=== PATIENT | female | born 1960 | race Caucasian/White ===

== ENCOUNTER 2019-10-05 12:46 | Emergency (ER) | payer OTHER, MEDICAID, SELFPAY ==
[2019-10-05 13:09] VITALS: BP 169/77; PULSE 82; RESP 15; TEMP 37.2; O2SAT 96; BMI 20.1
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
--- NOTE | 2019-10-05 13:37 | PC.NURSE ---
pt removed her own C-Collar.
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
[2019-10-05 15:16] VITALS: BP 135/65; PULSE 86; O2SAT 98
== END 2019-10-05 15:18 | disposition home or self-care (01) ==
PROVIDERS: Emergency Provider Nurse Practitioner; Family Provider Family Medicine; PCP Family Medicine
DX: R51 Headache (principal)
CPT/HCPCS: 70450; 72125; 99283; 99284

== ENCOUNTER → 2020-05-21 14:02 | Outpatient (CLI) | payer OTHER, MEDICAID, SELFPAY ==
[2020-05-21 15:40] LABS: Add Manual Diff / Slide Review NO; Basophils Absolute Auto 100 /uL (0-100); Basophils Percent Auto 1.4 % (0-2); Eosinophils Absolute Auto 0 /uL (0-450); Eosinophils Percent Auto 0.4 % (2-4); Hematocrit 40.2 % (36-46); Hemoglobin 13.7 g/dL (12.0-16.0); Lymphocytes Absolute Auto 1500 /uL (1100-4500); Lymphocytes Percent Auto 28.5 % (25-40); Mean Corpuscular Hemoglobin 34.1 PG (26-34); Mean Corpuscular Volume 100.3 fL (80-100); Monocytes Absolute Auto 600 /uL (0-900); Monocytes Percent Auto 12.2 % (3-14); Neutrophils Absolute Auto 3000 /uL (1500-7000); Neutrophils Percent Auto 57.5 % (50-75); Platelet Count 197 X10^3/uL (150-400); Red Blood Cell Count 4.01 X10^6/uL (4.0-5.2); Red Cell Distribution Width 13.9 % (11.6-14.8); White Blood Cell Count 5.3 X10^3/uL (4.5-11.0)
[2020-05-21 15:45] LABS: Prothrombin Time 10.9 SECONDS (10.1-12.7)
[2020-05-21 15:50] LABS: Alanine Aminotransferase 49 IU/L (<35); Albumin 5.3 g/dL (3.5-5.0); Albumin Globulin Ratio 1.4 (1.0-2.8); Alkaline Phosphatase 115 U/L (38-126); Aspartate Aminotransferase 76 IU/L (14-36); BUN Creatinine Ratio 17.5 (6-22); Bilirubin Total 0.4 mg/dL (0.2-1.3); Blood Urea Nitrogen 7 mg/dL (7-17); Carbon Dioxide 29 mmol/L (22-32); Chloride 101 mmol/L (98-107); Estimated Glomerular Filt Rate > 60.0 mL/min (>60); Globulin 3.7 g/dL (1.7-4.1); Glucose 87 mg/dL (70-100); HEMOLYSIS < 15 (0-50); Magnesium 2.1 mg/dL (1.6-2.3); Potassium 3.8 mmol/L (3.4-5.1); Sodium 139 mmol/L (137-145)
[2020-05-21 16:44] LABS: TSH w/ Reflex to FT4 1.87 uIU/mL (0.47-4.68)
[2020-05-23 00:54] LABS: Vitamin B1 104.1 nmol/L (66.5-200.0)
== END ==
PROVIDERS: Family Provider Family Medicine; PCP Nurse Practitioner Family; Referring Provider Nurse Practitioner Family; Visit Provider Nurse Practitioner Family
DX: F10.10 Alcohol abuse, uncomplicated (principal)
CPT/HCPCS: 36415; 80053; 83735; 84425; 84443; 85025; 85610

== ENCOUNTER → 2020-06-05 08:10 | Outpatient (CLI) | payer OTHER, MEDICAID, SELFPAY ==
[2020-06-06 17:15] LABS: Fecal Immunochemical Test Negative (Negative)
== END ==
PROVIDERS: Family Provider Family Medicine; PCP Nurse Practitioner Family; Referring Provider Nurse Practitioner Family; Visit Provider Nurse Practitioner Family
DX: F10.10 Alcohol abuse, uncomplicated (principal)
CPT/HCPCS: 82274

== ENCOUNTER → 2020-06-08 09:51 | Outpatient (CLI) | payer OTHER, MEDICAID, SELFPAY ==
--- NOTE | 2020-06-08 09:52 | DI.MG.S_ITS ---
BILATERAL DIGITAL SCREENING MAMMOGRAM 3D/2D WITH CAD: 06/08/2020 CLINICAL: Routine screening. Family history of breast cancer. Comparison is made to exams dated: 12/06/2014 mammogram, 01/03/2009 mammogram, 02/18/2007 mammogram, and 11/03/2004 mammogram - [facility]. The tissue of both breasts is heterogeneously dense. This may lower the sensitivity of mammography. Current study was also evaluated with a Computer Aided Detection (CAD) system. No significant masses, calcifications, or other findings are seen in either breast. There has been no significant interval change. IMPRESSION: NEGATIVE There is no mammographic evidence of malignancy. A 1 year screening mammogram is recommended. This exam was interpreted at Station ID: [id number]. NOTE: For mammograms, a report in lay terms will be sent to the patient. Approximately 15% of breast malignancies will not be visualized mammographically. In the management of a palpable breast mass, a negative mammogram must not discourage biopsy of a clinically suspicious lesion. Electronically Signed By: Keaton gusman/reggie:06/10/2020 08:43:21 letter sent: Normal Exam ACR BI-RADS Category 1: Negative [id number]
== END ==
PROVIDERS: Family Provider Family Medicine; PCP Nurse Practitioner Family; Referring Provider Nurse Practitioner Family; Visit Provider Nurse Practitioner Family
DX: Z12.31 Encounter for screening mammogram for malignant neoplasm of breast (principal); Z80.3 Family history of malignant neoplasm of breast
CPT/HCPCS: 77063; 77067

== ENCOUNTER → 2020-06-24 13:44 | Outpatient (CLI) | payer OTHER, MEDICAID, SELFPAY ==
[2020-06-24 14:37] LABS: Alanine Aminotransferase 15 IU/L (<35); Albumin 4.5 g/dL (3.5-5.0); Albumin Globulin Ratio 1.4 (1.0-2.8); Alkaline Phosphatase 88 U/L (38-126); Aspartate Aminotransferase 23 IU/L (14-36); BUN Creatinine Ratio 17.6 (6-22); Bilirubin Total 0.3 mg/dL (0.2-1.3); Blood Urea Nitrogen 9 mg/dL (7-17); Calcium 9.4 mg/dL (8.4-10.2); Carbon Dioxide 32 mmol/L (22-32); Chloride 104 mmol/L (98-107); Estimated Glomerular Filt Rate > 60.0 mL/min (>60); Globulin 3.3 g/dL (1.7-4.1); Glucose 101 mg/dL (70-100); HEMOLYSIS < 15 (0-50); Potassium 4.3 mmol/L (3.4-5.1); Sodium 141 mmol/L (137-145); Total Protein 7.8 g/dL (6.3-8.2)
== END ==
PROVIDERS: Family Provider Family Medicine; PCP Nurse Practitioner Family; Referring Provider Nurse Practitioner Family; Visit Provider Nurse Practitioner Family
DX: F10.11 Alcohol abuse, in remission (principal); R74.8 Abnormal levels of other serum enzymes
CPT/HCPCS: 36415; 80053

== ENCOUNTER 2023-09-15 09:07 | Emergency (ER) | payer OTHER, MEDICAID, SELFPAY ==
[2023-09-15 09:32] VITALS: BP 121/69; PULSE 82; RESP 18; TEMP 36.6; O2SAT 96; BMI 18.8
[2023-09-15 10:10] LABS: Bacteria Urine None Seen; Culture Indicated Urine Cult Not Indicated; RBC Urine None Seen (0-5/HPF); Squamous Epithelial Cell Urine None Seen (0-5/HPF); WBC Urine None Seen (0-5/HPF)
[2023-09-15] MEDS: SODIUM CHLORIDE 0.9% 1,000 ML 1000 ML IV (10:12)
--- NOTE | 2023-09-15 10:38 | ED.GENADULT ---
HPI - General Adult General Chief complaint: Toxicology Problem Stated complaint: sent from DR drea burciaga Time Seen by Provider: 09/15/23 09:39 Source: patient Mode of arrival: Wheelchair History of Present Illness HPI narrative: Patient is a 62-year-old female. She went her primary doctor's office today as an initial visit. She does have a significant alcohol use history. Has withdrawn from alcohol in the past. Her last drink was last evening. She has never had a seizure secondary to alcohol withdrawal. She has had diarrhea for the past 2 months. No recent travel. No recent antibiotics. This is why she went to the primary doctor's office today. During that visit she had what appeared to be a syncopal episode. States she was trying to make it to the bathroom in order to have a bowel movement when the event happened. She was sent here to the emergency department for concern of alcohol withdrawal. Related Data Home Medications Medication Instructions Recorded Confirmed No Known Home Medications 09/15/23 09/15/23 Allergies Allergy/AdvReac Type Severity Reaction Status Date / Time cephalexin Allergy Mild HIVES Verified 09/15/23 08:20 cholecalciferol (vitamin D3) Allergy Mild Vertigo Verified 09/15/23 08:20 [From Vitamin D3] Penicillins Allergy Mild HIVES Verified 09/15/23 08:20 Sulfa (Sulfonamide Allergy Mild HIVES Verified 09/15/23 08:20 Antibiotics) tetracycline Allergy Mild HIVES Verified 09/15/23 08:20 Review of Systems Review of Systems ROS Unobtainable: All systems reviewed & are unremarkable except as noted in HPI and below Patient History Medical History Macrocytosis without anemia Elevated liver enzymes Alcohol abuse, in remission (05/22/20) Vision disorder Hearing decreased Change in bowel movement ETOH abuse Family History (Updated 06/04/20 @ 20:15 by Chanell Jensen) Mother Breast cancer Social History Smoking Status: Current every day smoker Tobacco: How many years used: 40 quit status: not considering quitting second hand exposure: No alcohol intake: current substance use type: marijuana Smoking Status: Current every day smoker alcohol intake frequency: 3 or more drinks per day Alcohol type: beer Substance Use Type: marijuana Exam Initial Vital Signs Initial Vital Signs: Vital Signs Temperature 98 F 09/15/23 09:32 Pulse Rate 82 09/15/23 09:32 Respiratory Rate 18 09/15/23 09:32 Blood Pressure 121/69 09/15/23 09:32 Pulse Oximetry 96 09/15/23 09:32 Oxygen Delivery Method Room Air 09/15/23 09:32 HENKS Head: normal to inspection and normocephalic Resp Effort & Inspection: normal respiratory effort Auscultation: clear to auscultation bilaterally Cardio Rate: regular rate Rhythm: regular rhythm GI Inspection: normal to inspection and non-distended Neuro Other: Alert and oriented. Is shaking. Extrem General: normal to inspection and capillary refill normal Course Orders Ordered: ED Orders 09/15/23 09:54 EKG-12 Lead Stat 09/15/23 09:57 Urine Microscopic Stat 09/15/23 10:10 BMP [Basic Metabolic Panel] Stat CBC Auto Diff [Complete Blood Count AUTO DIFF] Stat Discontinued Medications Sodium Chloride (Normal Saline 0.9%) 1,000 mls @ 1,000 mls/hr IV BOLUS ONE Stop: 09/15/23 10:53 Last Infusion: 09/15/23 11:23 Dose: Infused Documented By: Admin: 09/15/23 10:12 Dose: 1,000 mls/hr Documented By: MPO Vital Signs Vital signs: Vital Signs - 8 hr 09/15/23 12:11 Pulse Rate 86 Respiratory Rate 18 Blood Pressure 182/86 H Pulse Oximetry 96 Oxygen Delivery Method Room Air Medical Decision Making Lab Data Lab results reviewed: Yes I reviewed the patient's lab results. 09/15/23 10:10 09/15/23 10:10 Labs: Lab Results 09/15/23 09/15/23 Range/Units 09:57 10:10 WBC 4.9 (4.5-11.0) X10^3/uL RBC 4.32 (4.0-5.2) X10^6/uL Hgb 14.2 (12.0-16.0) g/dL Hct 42.4 (36-46) % MCV 98.1 (80-100) fL MCH 32.9 (26-34) PG MCHC 33.5 (30-36) % RDW 14.3 (11.6-14.8) % Plt Count 177 (150-400) X10^3/uL Neut % (Auto) 70.1 (50-75) % Lymph % (Auto) 15.5 L (25-40) % [place] % (Auto) 13.6 (3-14) % Eos % (Auto) 0.0 L (2-4) % Baso % (Auto) 0.8 (0-2) % Neut # (Auto) 3500 (7082-7551) /uL Lymph # (Auto) 800 L (1932-5231) /uL [place] # (Auto) 700 (0-900) /uL Eos # (Auto) 0 (0-450) /uL Baso # (Auto) 0 (0-100) /uL Sodium 137 (137-145) mmol/L Potassium 4.1 (3.4-5.1) mmol/L Chloride 100 (98-107) mmol/L Carbon Dioxide 25 (22-32) mmol/L BUN 10 (7-17) mg/dL Creatinine 0.48 L (0.52-1.04) mg/dL Estimated GFR > 60 (>60) mL/min BUN/Creatinine Ratio 20.8 (6-22) Glucose 122 H (80-110) mg/dL Calcium 9.5 (8.4-10.2) mg/dL Urine RBC None seen (0-5/HPF) Urine WBC None seen (0-5/HPF) Ur Squamous Epith Cells None seen (0-5/HPF) Urine Bacteria None seen (None) Ur Culture Indicated? Cult not indicated Urine Dip Bedside Urine Glucose Negative Bedside Urine Bilirubin - Negative Bedside Urine Ketone - Negative Urine Specific [place] 1.015 Bedside Urine Occult Blood - Negative Bedside Urine pH 7.0 Bedside Urine Protein ++ 100 Bedside Urine Urobilinogen - Negative Bedside Urine Nitrite - Negative Bedside Urine Leukocytes - Negative Esterase Point of care testing: Urine Dip Bedside Urine Glucose Negative Bedside Urine Bilirubin - Negative Bedside Urine Ketone - Negative Urine Specific [place] 1.015 Bedside Urine Occult Blood - Negative Bedside Urine pH 7.0 Bedside Urine Protein ++ 100 Bedside Urine Urobilinogen - Negative Bedside Urine Nitrite - Negative Bedside Urine Leukocytes - Negative Esterase ECG Data Attestation: I personally reviewed and interpreted this ECG as follows: Interpretation: Sinus rhythm Ventricular rate of 78 LVH Normal axis Normal QRS No ST T wave changes MDM Narrative Medical decision making narrative: I do suspect that the patient is having a degree of alcohol withdrawal although she denied multiple offers for help with this to include detox. He was just like to be discharged home. She was given fluids and feels somewhat better afterwards. No recent travel. No recent antibiotics. Unable to provide a stool sample here in the ER. Will discharge patient home with instructions to try antidiarrheal medications such as Imodium. She was advised that she can return to the emergency department at any point if she felt like she needed help with her alcohol use. She expressed understanding and agreement. Discharge Plan Departure Patient Disposition: Home Clinical Impression: Diarrhea, Alcohol abuse Instructions: DI for Alcohol Use Disorder Activity Restrictions/Additional Instructions: Recommend that you consider using loperamide/Imodium to help with your diarrhea. Be sure that you were increasing your fluid intake. Contact your primary doctor for follow-up. I would recommend that you would consider seeking help for your alcohol use. Return to the emergency department for new symptoms. Prescriptions: No Action No Known Home Medications Referrals: Coleen Hillman DO [Primary Care Provider] - Stand Alone Forms: Patient Portal/API
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
--- NOTE | 2023-09-15 11:22 | PC.NURSE ---
I asked patient if she would like to speak with our social media director, and patient responds No, I think we've got it handled.
[2023-09-15 11:28] LABS: Add Manual Diff / Slide Review NO; Basophils Absolute Auto 0 /uL (0-100); Basophils Percent Auto 0.8 % (0-2); Eosinophils Absolute Auto 0 /uL (0-450); Hematocrit 42.4 % (36-46); Hemoglobin 14.2 g/dL (12.0-16.0); Lymphocytes Absolute Auto 800 /uL (1100-4500); Lymphocytes Percent Auto 15.5 % (25-40); Mean Corpuscular HGB Conc 33.5 % (30-36); Mean Corpuscular Hemoglobin 32.9 PG (26-34); Mean Corpuscular Volume 98.1 fL (80-100); Monocytes Absolute Auto 700 /uL (0-900); Monocytes Percent Auto 13.6 % (3-14); Neutrophils Absolute Auto 3500 /uL (1500-7000); Neutrophils Percent Auto 70.1 % (50-75); Platelet Count 177 X10^3/uL (150-400); Red Blood Cell Count 4.32 X10^6/uL (4.0-5.2); Red Cell Distribution Width 14.3 % (11.6-14.8); White Blood Cell Count 4.9 X10^3/uL (4.5-11.0)
[2023-09-15 11:42] LABS: BUN Creatinine Ratio 20.8 (6-22); Blood Urea Nitrogen 10 mg/dL (7-17); Calcium 9.5 mg/dL (8.4-10.2); Carbon Dioxide 25 mmol/L (22-32); Chloride 100 mmol/L (98-107); Estimated Glomerular Filt Rate > 60 mL/min (>60); Glucose 122 mg/dL (80-110); HEMOLYSIS < 15 (0-50); Potassium 4.1 mmol/L (3.4-5.1); Sodium 137 mmol/L (137-145)
[2023-09-15 12:11] VITALS: BP 182/86; PULSE 86; RESP 18; O2SAT 96
== END 2023-09-15 12:12 | disposition home or self-care (01) ==
PROVIDERS: Emergency Provider Emergency Medicine; Family Provider Family Medicine; PCP Family Medicine
DX: F10.10 Alcohol abuse, uncomplicated (principal); R19.7 Diarrhea, unspecified; R07.9 Chest pain, unspecified
CPT/HCPCS: 36415; 80048; 81003; 81015; 85025; 93005; 96360; 99284

== ENCOUNTER → 2023-09-16 10:52 | Outpatient (CLI) | payer OTHER, MEDICAID, SELFPAY ==
[2023-09-16 12:33] LABS: Lipase 419 U/L (23-300)
[2023-09-16 12:45] LABS: TSH w/ Reflex to FT4 2.72 uIU/mL (0.47-4.68)
[2023-09-16 13:24] LABS: Vitamin B12 586 pg/mL (239-931)
[2023-09-16 20:12] LABS: HIV 1 & 2 Ab/Ag 4th Gen Combo NEGATIVE (NEGATIVE)
[2023-09-17 18:22] LABS: Hep C Virus Ab w/Reflex Quant NEGATIVE s/c (NEGATIVE)
== END ==
PROVIDERS: Family Provider Family Medicine; PCP Family Medicine; Referring Provider Family Medicine; Visit Provider Family Medicine
DX: Z11.59 Encounter for screening for other viral diseases (principal); Z11.4 Encounter for screening for human immunodeficiency virus [HIV]; D75.89 Other specified diseases of blood and blood-forming organs; F10.10 Alcohol abuse, uncomplicated; Z63.8 Other specified problems related to primary support group
CPT/HCPCS: 36415; 82607; 83690; 84443; 86803; 87389

== ENCOUNTER → 2023-09-22 08:41 | Outpatient (CLI) | payer OTHER, MEDICAID, SELFPAY ==
--- NOTE | 2023-09-22 08:42 | DI.US.S_ITS ---
PROCEDURE: US ABDOMEN LIMITED INDICATIONS: ETOH ABUSE TECHNIQUE: Real-time scanning was performed of the abdominal and retroperitoneal organs, with image documentation. COMPARISON: None. FINDINGS: Liver: Liver is normal in size and homogeneous in echotexture. No nodular contour. The liver parenchyma is diffusely echogenic. Main portal vein is patent with hepatopedal flow. Gallbladder: No stones or sludge. Normal wall thickness measuring 1 mm. No pericholecystic fluid. Biliary ducts: Intrahepatic bile ducts are non-dilated. Extrahepatic bile duct caliber measures 5.8 mm. Normal is 6-7 mm or less in diameter, or 10 mm or less post-cholecystectomy. Pancreas: Visualized portions of the pancreas are sonographically normal. Spleen: Spleen is normal in size and homogeneous in echotexture. Kidneys: Right kidney is normal in size and echotexture. No hydronephrosis or nephrolithiasis. No solid masses. Miscellaneous: No free abdominal fluid. IMPRESSION: 1. Liver parenchyma is diffusely echogenic which may be seen in the setting of parenchymal disease such as steatosis. No nodular contour or cirrhotic morphology. 2. No sonographic evidence of a hepatic mass. Main portal vein is patent with hepatopedal flow. Dictated by: Thony Sal M.D. on 09/22/2023 at 10:21 Approved by: Thony Sal M.D. on 09/22/2023 at 10:35
== END ==
LOC: US 08:42
PROVIDERS: PCP Family Medicine; Referring Provider Family Medicine; Visit Provider Family Medicine
DX: D75.89 Other specified diseases of blood and blood-forming organs; F10.11 Alcohol abuse, in remission
CPT/HCPCS: 76705

== ENCOUNTER → 2023-10-30 | Outpatient (CLI) | payer SELFPAY ==
--- NOTE | 2023-10-30 | DI.MG.S_ITS ---
BILATERAL DIGITAL SCREENING MAMMOGRAM 3D/2D WITH CAD: 10/30/2023 CLINICAL: Routine screening. Family history of breast cancer. Comparison is made to exams dated: 06/08/2020 mammogram and 12/06/2014 mammogram - [facility]. Both breasts are heterogeneously dense, which may obscure small masses (category c / 51-75% glandular tissue). Current study was also evaluated with a Computer Aided Detection (CAD) system. There is an asymmetry in the right breast anterior depth lateral region seen on the craniocaudal view only. This is more prominent. No other significant masses, calcifications, or other findings are seen in either breast. IMPRESSION: INCOMPLETE: NEEDS ADDITIONAL IMAGING EVALUATION The asymmetry in the right breast is indeterminate. Additional views with possible ultrasound are recommended. Based on the Tyrer Cuzick model (a risk assessment model) the patient's lifetime risk is 13.8% and her 10 year risk is 6.1%. According to the ACR, ACS, and NCCN guidelines, an annual breast MRI exam along with mammogram is recommended if the patient's lifetime risk is 20% or greater. This exam was interpreted at Station ID: [id number]. NOTE: For mammograms, a report in lay terms will be sent to the patient. Approximately 15% of breast malignancies will not be visualized mammographically. In the management of a palpable breast mass, a negative mammogram must not discourage biopsy of a clinically suspicious lesion. Electronically Signed By: Cachorro Ye M.D. lc/:11/01/2023 13:29:55 letter sent: Additional Imaging Needed ACR BI-RADS Category 0: Incomplete [id number]
== END ==
LOC: MAMMO 09:56
PROVIDERS: PCP Family Medicine; Referring Provider Family Medicine; Visit Provider Family Medicine
DX: Z12.31 Encounter for screening mammogram for malignant neoplasm of breast (principal); Z80.3 Family history of malignant neoplasm of breast; R92.333 Mammographic heterogeneous density, bilateral breasts
CPT/HCPCS: 77063; 77067

== ENCOUNTER → 2024-01-17 12:02 | Outpatient (CLI) | payer OTHER, MEDICAID, SELFPAY ==
--- NOTE | 2024-01-17 | DI.MG.S_ITS ---
UNILATERAL RIGHT DIGITAL DIAGNOSTIC MAMMOGRAM 3D/2D WITH ADDITIONAL VIEWS: 01/17/2024 CLINICAL: Additional evaluation requested from prior study. Comparison is made to exams dated: 10/30/2023 mammogram, 06/08/2020 mammogram, and 12/06/2014 mammogram - [facility]. The right breast is heterogeneously dense, which may obscure small masses (category c / 51-75% glandular tissue). With focal spot compression, and additional views, the asymmetry in the right breast anterior depth lateral region seen on the craniocaudal view only seen on screening mammography resolves and most likely is fibroglandular tissue. No abnormality seen in additional views. No other significant masses or calcifications are seen in the breast. IMPRESSION: PROBABLY BENIGN Resolution of screening mammography abnormality with additional views. Follow-up mammogram and ultrasound in 6 months is recommended to confirm resolution of the asymmetry in the right breast. Findings and recommendations were conveyed to the patient at time of exam. Based on the Tyrer Cuzick model (a risk assessment model) the patient's lifetime risk is 13.8% and her 10 year risk is 6.1%. According to the ACR, ACS, and NCCN guidelines, an annual breast MRI exam along with mammogram is recommended if the patient's lifetime risk is 20% or greater. This exam was interpreted at Station ID: [id number]. NOTE: For mammograms, a report in lay terms will be sent to the patient. Approximately 15% of breast malignancies will not be visualized mammographically. In the management of a palpable breast mass, a negative mammogram must not discourage biopsy of a clinically suspicious lesion. Electronically Signed By: Sandrine ward/:01/17/2024 12:41:50 letter sent: Followup Recommended ACR BI-RADS Category 3: Probably benign [id number]
== END ==
PROVIDERS: PCP Family Medicine; Referring Provider Family Medicine; Visit Provider Family Medicine
DX: R92.8 Other abnormal and inconclusive findings on diagnostic imaging of breast (principal); R92.331 Mammographic heterogeneous density, right breast
CPT/HCPCS: 77065; G0279

== ENCOUNTER → 2024-04-14 13:57 | Outpatient (CLI) | payer OTHER, MEDICAID, SELFPAY ==
[2024-04-14 14:59] LABS: Appearance Urine UA CLEAR; Bilirubin Urine UA NEGATIVE (NEGATIVE); Color Urine UA YELLOW; Glucose Urine UA NEGATIVE (Negative); Ketones Urine UA NEGATIVE (NEGATIVE); Leukocyte Esterase Urine UA NEGATIVE (NEGATIVE); Nitrite Urine UA NEGATIVE (Negative); Occult Blood Urine UA NEGATIVE (Negative); Protein Urine UA NEGATIVE (Negative); Urobilinogen Urine UA 0.2 E.U./dL (0.2)
[2024-04-18 08:36] LABS: Fecal Immunochemical Test Negative (Negative)
== END ==
PROVIDERS: PCP Family Medicine; Referring Provider Surgery; Visit Provider Surgery
DX: R19.8 Other specified symptoms and signs involving the digestive system and abdomen (principal); R10.2 Pelvic and perineal pain
CPT/HCPCS: 81003; 82274